=== PATIENT | male | born 1965 | race Caucasian/White ===

== ENCOUNTER → 2019-11-04 | Outpatient (CLI) | payer OTHER ==
[~2019-11-04] MED LIST: DARVOCET-N 1001 EACH PO; METOCLOPRAMIDE; NORFLEX100 MG PO; [UNRECOGNIZED DRUG - REMARK]
== END ==
LOC: CAT 12:49
PROVIDERS: ATTEND Neuromusculoskeletal Medicine & OMM
DX: Z13.6 Encounter for screening for cardiovascular disorders (principal); I25.10 Atherosclerotic heart disease of native coronary artery without angina pectoris; E78.00 Pure hypercholesterolemia, unspecified